=== PATIENT | female | born 1995 ===

== ENCOUNTER 2022-05-29 14:40 | Inpatient (IN) | payer OTHER ==
[2022-05-29] MEDS ORDERED: Carboprost Tromethamine 250 MCG/1 ML Amp IM PRN (18:32)
[2022-05-29] MEDS ORDERED: Misoprostol 200 MCG Tab PO PRN (18:32)
[2022-05-29] MEDS ORDERED: Water For Irrigation,Sterile 1,000 ML Container IRR PRN (18:32)
[2022-05-29] MEDS ORDERED: Sodium Chloride 0.9% 2.5 ML Syringe FLUSH PRN (18:32)
[2022-05-29] MEDS ORDERED: Methylergonovine 0.2 MG/1 ML Amp IM PRN (18:32)
[2022-05-29] MEDS ORDERED: Butorphanol 1 MG/ML SDV IVPUSH PRN (18:32)
[2022-05-29] MEDS ORDERED: Tranexamic Acid 1,000 MG in Sodium Chloride 0.9% 100 ML IV PRN (18:32)
[2022-05-29] MEDS ORDERED: Sodium Chloride 0.9% 10 ML Syringe FLUSH PRN (18:32)
[2022-05-29] MEDS ORDERED: Lidocaine 1% 50 ML MDV INJECT PRN (18:32)
[2022-05-29] MEDS ORDERED: Ondansetron 4 MG/2 ML SDV IVPUSH PRN (18:32)
[2022-05-29] MEDS ORDERED: Sodium Chloride 0.9% 20 ML SDV IV PRN (18:32)
[2022-05-29] MEDS ORDERED: Oxytocin/0.9 % Sodium Chloride 30 UNIT/500 ML BAG IV SCH ×2 (18:45→22:45)
[2022-05-29] MEDS: Lactated Ringers 1,000 ML IV SCH ×2 (19:00→20:19)
[2022-05-29] MEDS ORDERED: Phenylephrine HCl 0.5 MG/5 ML AMP IVPUSH PRN (20:13)
[2022-05-29] MEDS ORDERED: ePHEDrine 50 MG/ML SDV IVPUSH PRN ×2 (20:13)
[2022-05-29] MEDS ORDERED: Ropivacaine HCl/PF 400 MG in Premix Bag 1 BAG EPIDUR SCH (20:15)
[2022-05-29] MEDS ORDERED: Bupivacaine 0.5% 10 ML SDV ONE (20:21)
[2022-05-29] MEDS ORDERED: Ropivacaine/PF 400 MG/200 ML PCA ONE (20:21)
[2022-05-30] MEDS ORDERED: Docusate Sodium 100 MG Cap PO PRN (00:48)
[2022-05-30] MEDS ORDERED: Benzocaine/Menthol 20%-0.5% Spray 78 GM Cannister TOP PRN (00:48)
[2022-05-30] MEDS ORDERED: Lanolin 100% Cream 7 GM Tube TOP PRN (00:48)
[2022-05-30] MEDS ORDERED: Ibuprofen 400 MG Tab PO PRN (00:48)
[2022-05-30] MEDS ORDERED: oxyCODONE 5 MG Tab PO PRN (00:48)
[2022-05-30] MEDS ORDERED: Acetaminophen 500 MG Tab PO PRN ×2 (00:48)
[2022-05-30] MEDS ORDERED: Bisacodyl 10 MG Supp RECTAL PRN (00:48)
[2022-05-30] MEDS: Witch Hazel Medicated Pads 40/Jar TOP PRN (02:45)
[2022-05-30] MEDS: Ibuprofen 800 MG Tab PO PRN ×2 (03:52→11:01)
[2022-05-31] MEDS: Ibuprofen 800 MG Tab PO PRN (04:38)
[2022-05-31] MEDS: Witch Hazel Medicated Pads 40/Jar TOP PRN (06:29)
== END 2022-05-31 11:30 | disposition home or self-care (01) | DRG 807 ==
LOC: MW.OBCHECK 14:40 → MW.OB 14:42 → MW.OBCHECK 18:32 → MW.OB 18:33 → OBSVTOIN 05-30 00:24 → MW.OB 05-30 04:01
PROVIDERS: ADMIT Obstetrics & Gynecology; ATTEND Obstetrics & Gynecology
PROC: 10E0XZZ Delivery of Products of Conception, External Approach (ICD-10-PCS; principal; 2022-05-30)
PROC: 10907ZC Drainage of Amniotic Fluid, Therapeutic from Products of Conception, Via Natural or Artificial Opening (ICD-10-PCS; 2022-05-30)
PROC: 0HQ9XZZ Repair Perineum Skin, External Approach (ICD-10-PCS; 2022-05-30)
PROC: 3E0R3BZ Introduction of Anesthetic Agent into Spinal Canal, Percutaneous Approach (ICD-10-PCS; 2022-05-30)
PROC: 00HU33Z Insertion of Infusion Device into Spinal Canal, Percutaneous Approach (ICD-10-PCS; 2022-05-30)
DX: O70.0 First degree perineal laceration during delivery (principal); Z37.0 Single live birth; Z3A.39 39 weeks gestation of pregnancy
CPT/HCPCS: 01967; 36415; 59025; 59409; 59414; 81003; 82803; 85014; 85018; 85027; 86592; 86850; 86900; 86901; A9270-GY; J2590; J2795; J3490; J7120